=== PATIENT | female | born 1960 | race Caucasian/White ===

== ENCOUNTER 2019-07-21 08:18 | Inpatient (IN) | payer BC ==
[~2019-07-21] VITALS: Ht 165.1 cm; Wt 65.8 kg
[~2019-07-21 08:18] MED LIST: ACET325T53 PO; ALPR0.25 PO; LEVO100T PO; LOSA1TAB3 PO; PANT40TA2 PO
--- NOTE | 2019-07-21 09:05 | NUR ---
PATIENT AWAKE ALERT ABLE TO AMBULATED NOTED GEN. BODY WEAKNESSNO FACIAL DROOP NO ARM DRIP NO SLURR SPEECH HER SISTER @ BEDSIDE ,MD @ BEDSIDE
[2019-07-21 09:20] LABS: BASOPHILS % (AUTO) 0.3 % (0.0-2.0); EOSINOPHILS % (AUTO) 0.1 % (0.0-6.0); HEMATOCRIT 40 % (33-45); HEMOGLOBIN 13.7 g/dL (11.5-14.8); LYMPHOCYTES # (AUTO) 0.9 /CMM (0.8-4.8); LYMPHOCYTES % (AUTO) 14.9 % (20.0-44.0); MEAN CORPUSCULAR HGB CONC 35 g/dl (31.0-36.0); MEAN CORPUSCULAR VOLUME 86 fL (82-100); MONOCYTES # (AUTO) 0.5 /CMM (0.1-1.30); MONOCYTES % (AUTO) 9.1 % (2.0-12.0); NEUTROPHILS # (AUTO) 4.5 /CMM (1.8-8.9); NEUTROPHILS % (AUTO) 75.6 % (43.0-81.0); PLATELET COUNT (AUTO) 272 /CMM (150-450); RED BLOOD CELL COUNT(AUTO) 4.61 MIL/uL (4.0-5.2)
[2019-07-21 09:33] LABS: ALANINE AMINOTRANSFERASE 17 U/L (12-78); ALKALINE PHOSPHATASE 67 U/L (46-116); ASPARTATE AMINOTRANSFERASE 19 U/L (15-37); BILIRUBIN,DIRECT 0.2 mg/dL (0.0-0.2); BILIRUBIN,TOTAL 0.7 mg/dL (0.2-1.0); CALCIUM, SERUM 9.2 mg/dL (8.5-10.1); CARBON DIOXIDE 33 mmol/L (21-32); CHLORIDE 83 mmol/L (98-107); CREATININE 0.7 mg/dL (0.6-1.3); GLUCOSE 120 mg/dL (74-106); POTASSIUM 3.8 mmol/L (3.5-5.1); TOTAL PROTEIN, SERUM 7.5 g/dL (6.4-8.2); UREA NITROGEN, BLOOD 4 mg/dL (7-18)
[2019-07-21 09:34] LABS: SODIUM SERUM 118 mmol/L (136-145)
[2019-07-21] MEDS ORDERED: IV NS 0.9% 1,000 ML BAG IV ONE (10:00)
[2019-07-21] MEDS ORDERED: ALPR0.5T PO (10:04)
[2019-07-21] MEDS ORDERED: CLON0.1T PO (10:04)
[2019-07-21] MEDS ORDERED: LOSA1TAB39 PO (10:04)
[2019-07-21] MEDS ORDERED: HYDR25TA4 PO (10:04)
[2019-07-21] MEDS ORDERED: LEVO112T5 PO (10:04)
[2019-07-21] MEDS ORDERED: PANT40TA4 PO (10:04)
--- NOTE | 2019-07-21 11:05 | NUR ---
Patient awake alert able to make her needs known ,her family @ bedside made aware paln of care noted RAC IV infusing well no edema, no pain ,patient rmaila discomfort @ this time
--- NOTE | 2019-07-21 11:35 | NUR ---
Patient requsting for Sloanefan noted urine out of 600 yellow urine sample send to lab
--- NOTE | 2019-07-21 11:43 | NUR ---
PAGED DR NOLASCO
--- NOTE | 2019-07-21 12:19 | NUR ---
CALLED [phone] SPOKE TO ROSEANNE BOUDREAUXLOPPER CARE TO 106 TELE
[2019-07-21 12:49] VITALS: BP 124/72
[2019-07-21] MEDS ORDERED: HYDROCODONE/APAP 5/325MG 1 EACH TABLET PO PRN (13:00)
[2019-07-21] MEDS ORDERED: MAGNESIUM HYDROXIDE 30 ML UDC PO PRN (13:00)
[2019-07-21] MEDS ORDERED: ACETAMINOPHEN 325 MG TABLET PO PRN (13:00)
[2019-07-21] MEDS ORDERED: ONDANSETRON HCL/PF 4 MG/2 ML VIAL IVP PRN (13:00)
[2019-07-21] MEDS ORDERED: ZOLPIDEM TARTRATE 5 MG TABLET PO PRN (13:00)
[2019-07-21] MEDS ORDERED: Z GUARD REMEDY 2 OZ OINT TP PRN (13:00)
[2019-07-21] MEDS ORDERED: MAG HYDROX/AL HYDROX/SIMETH 30 ML UDC PO PRN (13:00)
--- NOTE | 2019-07-21 13:00 | NUR ---
NUCLEAR EQUIPMENT DESIGN ENGINEER NOTE RECEIVED PATIENT FROM ER WITH DX HYPONATREMIA, UNDER CARE DR NOLASCO, ALERT, ORIENTED ,HOSPITAL ORIENTATION DOME ,VS TAKEN, BELONGING CHECKED, PLACED ON TELE MONITOR SR HR 65 , NO SOB NOTED AT THIS TIME , DR LOPEZ AT BEDSIDE SEEN AND EXAMINED PATIENT , PLAN OF CARE DISCUSSED WITH PATIENT, BED IN LOWEST AND LOCKED POSITION CALL LIGHT WITHIN REACH ,
[2019-07-21] MEDS: ACETAMINOPHEN 325 MG TABLET PO PRN (13:05)
[2019-07-21] MEDS ORDERED: ALPRAZOLAM 0.5 MG TABLET PO PRN (13:30)
[2019-07-21] MEDS ORDERED: hydrALAZINE HCL 25 MG TABLET PO PRN (13:30)
[2019-07-21] MEDS: IV NS 0.9% 1,000 ML IV PRN (13:52)
--- NOTE | 2019-07-21 14:17 | NUR ---
BAND CUTTER NOTE SEEN BY PT , STARTED ON IVF ORDERED TYLENOL FOR HEADACHE GIVEN
--- NOTE | 2019-07-21 15:15 | NUR ---
MUTUAL FUND ANALYST NOTE C\O ABDOMINAL DISCOMFORT MAALOX GIVEN ORDERED
--- NOTE | 2019-07-21 15:30 | NUR ---
INFANT CHILDCARE PROVIDER NOTE FEELS ANXIOUS XANAX 0.5 MG PO GIVEN ORDERED, SISTER AT BEDSIDE, WILL MONITOR
[2019-07-21 16:00] VITALS: BP 142/84
[2019-07-21] MEDS ORDERED: TRAMADOL HCL 50 MG TABLET PO ONE (16:30)
[2019-07-21] MEDS ORDERED: KETOROLAC TROMETHAMINE INJ 30 MG/ML VIAL IV ONE (16:30)
[2019-07-21] MEDS ORDERED: TRAMADOL HCL 50 MG TABLET PO PRN (16:30)
[2019-07-21] MEDS ORDERED: NAPROXEN 250 MG TABLET PO SCH (17:00)
--- NOTE | 2019-07-21 17:21 | NUR ---
telecommunications engineer note seen by neurologist and neurologist, gabo collected as ordered, tramadol po given ,stated that feel better will f\u family at bedside
[2019-07-21 20:00] VITALS: BP 106/63
--- NOTE | 2019-07-21 20:00 | NUR ---
BUSINESS CONTROLLER INITIAL NOTE RECEIVED PATIENT FROM AM RN WITH DX HYPONATREMIA, AOX4, R/A WELL TOLERATED, DENIES ANY PAIN OR DISCOMFORT ,VS STABLE, PLACED ON TELE MONITOR SR HR 60'S , REPEAT NA LEVELS RELAYED TO PT, NA TRENDING FROM 118-125 PLAN OF CARE DISCUSSED WITH PATIENT, BED IN LOWEST AND LOCKED POSITION CALL LIGHT WITHIN REACH , WILL CONT' MONITOR.
[2019-07-21] MEDS ORDERED: CLONIDINE HCL 0.1 MG TABLET PO SCH (22:00)
[2019-07-21 23:22] LABS: URINE SODIUM, RANDOM 25 mmol/l (40-220)
[2019-07-21 23:23] LABS: OSMOLALITY,URINE 94 mOS/kg (340-1090)
[2019-07-22] VITALS: BP 111/42
[2019-07-22] MEDS: IV NS 0.9% 1,000 ML IV PRN (03:23)
[2019-07-22] MEDS: ACETAMINOPHEN 325 MG TABLET PO PRN (03:37)
--- NOTE | 2019-07-22 06:30 | NUR ---
WRIST HEMMER CLOSING NOTE ENDORSED PATIENT TO AM RN , AOX4, R/A WELL TOLERATED, DENIES ANY PAIN OR DISCOMFORT ,VS STABLE, PLACED ON TELE MONITOR SR HR 60'S , REPEAT NA LEVELS RELAYED TO PT, NA TRENDING FROM 118-125 PLAN OF CARE DISCUSSED WITH PATIENT, BED IN LOWEST AND LOCKED POSITION CALL LIGHT WITHIN REACH , WILL CONT' MONITOR.
--- NOTE | 2019-07-22 07:10 | NUR ---
STEAM ROOM ATTENDANT OPENING NOTE RECEIVED REPORT FROM PM NURSE.PATIENT IN BED AOX4.ON R/A .NO SOB NO DISTRESS NOTED.DENIES ANY PAIN OR DISCOMFORT .ON TELE MONITOR SR HR 63. PLAN OF CARE DISCUSSED WITH PATIENT.BED IN LOWEST AND LOCKED POSITION .CALL LIGHT WITHIN REACH .SRX2.WILL CONTINUE TO MONITOR.
[2019-07-22] MEDS ORDERED: PANTOPRAZOLE 40 MG TABLET.DR PO SCH (07:30)
[2019-07-22 08:00] VITALS: BP 136/78
[2019-07-22 08:00] LABS: BASOPHILS % (AUTO) 0.5 % (0.0-2.0); EOSINOPHILS % (AUTO) 0.5 % (0.0-6.0); HEMATOCRIT 39 % (33-45); HEMOGLOBIN 13.3 g/dL (11.5-14.8); MEAN CORPUSCULAR HGB CONC 34 g/dl (31.0-36.0); MEAN CORPUSCULAR VOLUME 87 fL (82-100); MONOCYTES # (AUTO) 0.7 /CMM (0.1-1.30); MONOCYTES % (AUTO) 13.2 % (2.0-12.0); NEUTROPHILS # (AUTO) 3.7 /CMM (1.8-8.9); NEUTROPHILS % (AUTO) 66.8 % (43.0-81.0); PLATELET COUNT (AUTO) 238 /CMM (150-450); RED BLOOD CELL COUNT(AUTO) 4.51 MIL/uL (4.0-5.2); WHITE BLOOD COUNT (AUTO) 5.5 K/uL (4.3-11.0)
[2019-07-22 08:44] LABS: CALCIUM, SERUM 8.7 mg/dL (8.5-10.1); CREATININE 0.7 mg/dL (0.6-1.3); MAGNESIUM 1.9 mg/dL (1.8-2.4); PHOSPHORUS 2.4 mg/dL (2.5-4.9); POTASSIUM 3.2 mmol/L (3.5-5.1)
[2019-07-22 08:45] LABS: THYROID STIMULATING HORMONE 0.368 uIU/mL (0.358-3.74); URIC ACID 2.2 mg/dL (2.6-7.2)
[2019-07-22] MEDS ORDERED: LOSARTAN POTASSIUM 50 MG TABLET PO SCH (09:00)
[2019-07-22] MEDS ORDERED: LEVOTHYROXINE SODIUM 112 MCG TABLET PO SCH (09:00)
[2019-07-22] MEDS ORDERED: LOSA100T31 PO (09:54)
--- NOTE | 2019-07-22 10:00 | NUR ---
RN NOTE SEEN BY ,UPDATED ABOUT PATIENT CONDITION WITH LABS.GOT NEW ORDER FOR K PHOS 15MM IV.DR SPOKE TO THE PATIENT PLAN OF CARE EXPLAINED WITH D/C PLANNING AND DISCHARGE INSTRUCTIONS .PATIENT VERBALIZED UNDERSTANDING.WILL CONTINUE TO MONITOR.
--- NOTE | 2019-07-22 10:46 | NUR ---
RN NOTE PATIENT PICKED UP FOR CTA IN STABLE CONDITION.
[2019-07-22] MEDS ORDERED: IOHEXOL-350 100 ML VIAL IV ONE (10:57)
[2019-07-22] MEDS ORDERED: METOPROLOL TARTRATE INJ 5 MG/5 ML AMPUL ONE (10:57)
[2019-07-22] MEDS ORDERED: IV NS 0.9% 250 ML IV ONE (10:57)
[2019-07-22] MEDS ORDERED: CT SWABBABLE VALVE TRANS SET 1 EA INFUS.SET MC ONE (10:57)
[2019-07-22] MEDS ORDERED: NITROGLYCERIN 0.4 MG/TAB BOTTLE ONE (10:58)
[2019-07-22] MEDS ORDERED: METOPROLOL TARTRATE INJ 5 MG/5 ML AMPUL IVP PRN (11:00)
[2019-07-22] MEDS ORDERED: Potassium Phosphate meq 11 MEQ in IV D5W 100 ML IV SCH (11:00)
[2019-07-22] MEDS ORDERED: IV NS 0.9% 500 ML IV PRN (11:00)
[2019-07-22] MEDS ORDERED: NITROGLYCERIN 0.4 MG/TAB BOTTLE SL PRN (11:00)
--- NOTE | 2019-07-22 11:53 | NUR ---
RN NOTE PATIENT BACK TO THE UNIT IN STABLE CONDITION.K PHIS GIVEN LATE BECAUSE PATIENT WAS OUT FOR PROCEDURE.
--- NOTE | 2019-07-22 12:38 | NUR ---
RN NOTE CTA RESULT RELAYED TO .OK HOME.LEFT MESSAGE TO DR.SANTA GIRALDO TO GO HOME.NEED TO ORDER STATIN .DR WILL CALL TO PATIENT PHARMACY AND WILL ORDER NEW ORDER.PATIENT MADE AWARE.CLONIDINE FOR PRN IF BP>160.PATIENT AWARE.
[2019-07-22 12:51] VITALS: BP 128/76
[2019-07-22] MEDS ORDERED: SIMV10TA6 PO (12:55)
--- NOTE | 2019-07-22 13:10 | NUR ---
RN NOTE PATIENT DOES NOT WANT TO COMPLETE IV MEDICATION.WANT TO GO HOME.EXPLINED RISK ND BENEFIT.STILL REFUSING.EXPLAINED ALTERNATIVE DIETARY SUPPLEMENTS.
--- NOTE | 2019-07-22 13:26 | NUR ---
PATIENT DISCHARGE NOTE PATIENT D/C HOME WITH SISTER IN PRIVATE CAR IN STABLE CONDITION.NO SOB NO DISTRESS OR NO PAIN NOTED.TOOK ALL BELONGINGS AND DISCHARGE PAPER WORK.EXIT CARE GIVEN PATIENT VERBALIZED UNDERSTANDING.IV REMOVED PRESSURE DRESSING APPLIED.ESCORTED TO LOBBY.PATIENT WAS THANKFUL FOR CARE PROVIDED.
== END 2019-07-22 13:05 | disposition home or self-care (01) | DRG 641 ==
LOC: ER 08:20 → TELE1 11:52 → MEDSG1 07-22 08:30
PROVIDERS: ADMIT Student in an Organized Health Care Education/Training Program; ATTEND Student in an Organized Health Care Education/Training Program
DX: E87.1 Hypo-osmolality and hyponatremia (principal); I10 Essential (primary) hypertension; F03.90 Unspecified dementia, unspecified severity, without behavioral disturbance, psychotic disturbance, mood disturbance, and anxiety; K21.9 Gastro-esophageal reflux disease without esophagitis; E86.1 Hypovolemia; E87.6 Hypokalemia; E83.39 Other disorders of phosphorus metabolism; K29.70 Gastritis, unspecified, without bleeding; K59.00 Constipation, unspecified; R06.00 Dyspnea, unspecified; E06.3 Autoimmune thyroiditis; F41.9 Anxiety disorder, unspecified; Z87.891 Personal history of nicotine dependence; R51 Headache
CPT/HCPCS: 36415; 71045-TC; 75574; 80048-TC; 80061-TC; 80076-TC; 83735-TC; 83935-TC; 84100-TC; 84295-TC; 84300-TC; 84443-TC; 84484-TC; 84550-TC; 85025-TC; 87081-TC; 93307-TC; 97116-TC; 97530-TC; G0378; J3490; J7030; J7040; J7050; J7060; Q9967

== ENCOUNTER → 2025-07-14 | Emergency (ER) | payer MEDICARE, OTHER ==
[~2025-07-14] MED LIST changes: -ACET325T53 PO; -ALPR0.25 PO; +ALPR0.5T PO; +CLON0.1T PO; -LEVO100T PO; +LEVO112T5 PO; +LOSA100T31 PO; -LOSA1TAB3 PO; -PANT40TA2 PO; +PANT40TA49 PO; +SIMV10TA98 PO
== END | disposition left against medical advice (07) ==
LOC: ER 21:57
DX: R03.0 Elevated blood-pressure reading, without diagnosis of hypertension (principal); Z53.21 Procedure and treatment not carried out due to patient leaving prior to being seen by health care provider